=== PATIENT | female | born 1990 | race African-American/Black ===

== ENCOUNTER 2018-11-05 04:44 | Observation (INO) | payer MEDICAID ==
[~2018-11-05] VITALS: Ht 172.7 cm; Wt 63.5 kg
[2018-11-05] MEDS ORDERED: ACETAMINOPHEN WITH CODEINE 300/30MG TABLET PO SCH (05:15)
[2018-11-05 06:56] VITALS: BP 107/70
[2018-11-05 07:05] LABS: *BARBITURATES SCREEN URINE NEGATIVE (NEGATIVE); *BENZODIAZEPINES SCREEN URINE NEGATIVE (NEGATIVE)
[2018-11-05 07:06] LABS: *COCAINE SCREEN URINE NEGATIVE (NEGATIVE); CANNABINOID URINE SCREEN NEGATIVE (NEGATIVE); METHADONE URINE SCREEN NEGATIVE (NEGATIVE); OPIATES URINE SCREEN NEGATIVE (NEGATIVE); PHENCYCLIDINE URINE SCREEN NEGATIVE (NEGATIVE)
[2018-11-05 07:09] LABS: *AMPHETAMINES SCREEN URINE PRESUMTIVE POSITIVE (NEGATIVE)
== END 2018-11-05 11:15 | disposition home or self-care (01) ==
LOC: 8 EST LDRP 04:44
PROVIDERS: ADMIT Specialist; ATTEND Specialist
DX: Z04.1 Encounter for examination and observation following transport accident (principal); Z3A.34 34 weeks gestation of pregnancy
CPT/HCPCS: 76805; 80305; 80307; 99281; G0378